=== PATIENT | female | born 1950 | race Caucasian/White ===

== ENCOUNTER 2023-11-01 11:56 | Day surgery (SDC) | payer OTHER, SELFPAY ==
[2023-11-01] VITALS (19 sets, daily range): BP systolic 131–175; BP diastolic 68–112; BMI 33.5
[2023-11-01 13:20] LABS: ACT-LR - POC 294 Seconds (116-155)
--- NOTE | 2023-11-01 13:59 | ITS.CL.CATH ---
Consumer Safety Inspector - Catheterization
Cardiac Catheterization
Procedure Report:
CARDIAC CATHETERIZATION REPORT
Date of Procedure: 11/01/2023
Referring: Gaurav Reese MD
Indication: Exertional angina
HEMODYNAMIC DATA
AO: 129/76
LV: 129/12
LEFT VENTRICULOGRAPHY: Normal left ventricular wall motion with EF 63%
CORONARY ANGIOGRAPHY
Dominance: Right
Left Main: Normal
LAD: Mildly calcified with an angiographically ambiguous mid LAD lesion spanning the takeoff of the second septal clinical engineer. In some views this appears to be 70% while in other views it appears to be about 50% in severity. The remainder of the
LAD proper is free of disease. The large first diagonal branch which previously was said to have a 50% stenosis has no identifiable lesion on the study today.
Circumflex: Normal
RCA: Trivial luminal irregularities
FloWire assessment: At the conclusion the diagnostic study we proceeded with FloWire assessment of the angiographically ambiguous mid LAD stenosis. Heparin was used for anticoagulation. A 5 [place] EBU 3.5 guide catheter was used. A CapLinked wire
was passed into the distal LAD. iFR measurements were 0.87, 0.87, and 0.86. These are all consistent with flow-limiting disease. Accordingly, the decision was made to proceed with stenting of the mid LAD.
Angioplasty: We made an attempt to pass a 3.5 x 18 Poli RACHEL through the lesion but this would not cross. The undeployed stent was carefully removed and the vessel predilated with a 2.5 x 12 NC trek to 8 loreto. We then easily passed the 3.5 x 18 [place]
RACHEL to the target location where was deployed at 14 loreto then postdilated with a 3.5 NC Euphora to 17 [place]to. The final angiographic result was outstanding. There were no procedural complications.
Closure Device: None-the procedure was performed via the right radial artery
Radiation (mGy): 501
DAP (cm2.Gy): 36.1
Fluoroscopy time: 10.0 minutes
CONCLUSIONS
1: Normal left ventricular function with EF 63%
2: Single-vessel CAD as described-the LAD disease is flow-limiting
3. Successful stenting of mid LAD disease using 3.5 x 18 Poli RACHEL with outstanding result
4. Recommend uninterrupted dual antiplatelet therapy for 12 months and continued risk factor modification efforts
Copy to: Gaurav Reese MD, Saad Garcia MD
Boone Oliva MD, [facility], [facility]
[2023-11-01 14:40] LABS: ACT-LR - POC > 397 Seconds (116-155)
[2023-11-01] MEDS: NSS 1000 IV (15:51)
[2023-11-02 03:58] VITALS: BP 146/73
[2023-11-02 04:22] LABS: Hematocrit 35.1 % (37.0-47.0); Mean Corp Hgb Conc. 34.2 g/dL (33.0-37.0); Mean Corpuscular Hgb 30.1 pg (27.0-31.0); Mean Platelet Volume 10.8 fL (7.4-10.4); Platelet Count 193 10^3/uL (130-400); Red Blood Cell Count 3.99 10^6/uL (4.20-5.40); Red Cell Dist. Width 12.6 % (11.5-14.5); White Blood Cell Count 5.1 10^3/uL (4.8-10.8)
[2023-11-02 04:36] LABS: Blood Urea Nitrogen 12 mg/dl (7-17); Calcium 9.1 mg/dl (8.4-10.2); Carbon Dioxide 23 mmol/L (22-30); Chloride 107 mmol/L (98-107); Estimated Creatinine Clearance 81 ml/min; Glucose 83 mg/dl (70-99); HDL Cholesterol 65 mg/dl; LDL Cholesterol, Calculated 42 mg/dl; Potassium 4.1 mmol/L (3.5-5.1); Sodium 139 mmol/L (135-145); Total Cholesterol 118 mg/dl (50-199); Triglyceride 55 mg/dl (10-149); Very Low Density Lipoprotein 11 mg/dl (0-30); eGFR > 60.00
--- NOTE | 2023-11-02 05:23 | DOWNTIME ---
There was a [employer] Downtime on 11/02/2023 from 0100 to 11/02/2023 at 0337. Downtime documentation of patient's care, including medication administrations, has been reconciled in the electronic record per guidelines. Refer to the
patient's paper chart under the miscellaneous tab to see printed paper medication records and downtime forms.
[2023-11-02] MEDS: SYNTHROID 100 MCG PO (06:34)
[2023-11-02 07:42] VITALS: BP 154/94
[2023-11-02 07:44] VITALS: BP 165/84
[2023-11-02 07:47] VITALS: BP 162/77
[2023-11-02 08:15] VITALS: BMI 33.6
[2023-11-02] MEDS: LOW STRENGTH ASPIRIN 81 MG PO (08:17)
[2023-11-02] MEDS: ZETIA 10 MG PO (08:17)
[2023-11-02] MEDS: PEPCID 40 MG PO (08:17)
[2023-11-02] MEDS: CRESTOR 10 MG PO (08:17)
[2023-11-02] MEDS: PLAVIX 75 MG PO (08:18)
[2023-11-02] MEDS: IMDUR (EXTENDED RELEASE) 30 MG PO (08:18)
--- NOTE | 2023-11-02 08:32 | W.PN.CARDCBS ---
Addendum entered and electronically signed by KRISTOFER Mcmahon 11/02/23 08:59:
Starting losartan 25mg/d after discussion with Dr. Espino & Dr. Reese
Will continue to keep BP log as instructed
Original Note:
Today's Communication / Plan
-
cardiac rehab
home today
Impression / Plan
-
PCP: David Garcia MD
CDY: Gaurav Reese MD
73 y/o, progressive SOB/RIZO for 4-5 weeks with subsequent abnormal NST w/apical defect, EF 75%.
LHC- 70% mid LAD stenosis, iFR +, s/p angioplasty/RACHEL
IMPRESSION/PLAN:
CAD, s/p LAD PCI
tele- NSR 60s
radial cath site stable
DAPT w/asa, plavix
continue isosorbide
cardiac rehab consult
followup w/Dr. Reese next week as scheduled
HTN- modestly elevated 140-160s
not on any antihypertensives- she tells me her baseline is 120s.
keep BP log for next week and to followup w/Dr. Reese for management
HLD- excellent lipid profile noted
continue rosuvastatin, zetia, fish oil
GERD/HH- continue famotidine
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
Subjective
Date of Service: November 02, 2023
Denies cp/palps/dyspnea
oob ambulating
cath site without pain
Objective
Labs:
11/02/23 04:09
11/02/23 04:09
Labs
Hgb 12.0 g/dL (12.0-16.0) 11/02/23 04:09
Hct 35.1 % (37.0-47.0) L 11/02/23 04:09
Plt Count 193 10^3/uL (130-400) 11/02/23 04:09
Sodium 139 mmol/L (135-145) 11/02/23 04:09
Potassium 4.1 mmol/L (3.5-5.1) 11/02/23 04:09
BUN 12 mg/dl (7-17) 11/02/23 04:09
Creatinine 0.5 mg/dL (0.6-1.0) L 11/02/23 04:09
Glucose 83 mg/dl (70-99) 11/02/23 04:09
Vital Signs and I&O:
Vital Signs
Temp Pulse Resp BP Pulse Ox
98.6 F 68 18 162/77 97
11/02/23 07:38 11/02/23 08:15 11/02/23 07:38 11/02/23 07:47 11/02/23 07:38
Vital Signs
Temp Pulse Resp BP Pulse Ox
98.6 F 68 18 162/77 97
11/02/23 07:38 11/02/23 08:15 11/02/23 07:38 11/02/23 07:47 11/02/23 07:38
Intake & Output
10/31/23 11/01/23 11/02/23 11/03/23
06:59 06:59 06:59 06:59
Intake Total 1551 / 1551
Balance 1551 / 1551
Physical Exam
Physical Exam
AAOx3, MAEE 5/5
RRR S1 S2 no murmurs
CTA bilat, non labored
soft abd, + bs
right radial cath site without ht/bleeding, non tender
bilat extremities w/palpable distal pulses, no edema
--- NOTE | 2023-11-02 08:37 | W.PN.CD ---
Today's Communication / Plan
-
start losartan
DAPT
discharge today
follow up with Dr Reese
Impression / Plan
-
73 year old who underwent t LAD stenting yesterday.
Cath site fine . BP mildly elevated
- Continue DAPT. Importance reviewed with patient
- BP mildly elevated. BP at home had been in 140s and has been elevated at . reviewed with Dr Reese who will follow terminal carman and based on our discussion will start Losartan and she will follow up with Dr Reese
- discharge later today
Physical Exam
Vital Signs/Labs
Vital Signs
Temp Pulse Resp BP Pulse Ox
98.6 F 68 18 162/77 97
11/02/23 07:38 11/02/23 08:15 11/02/23 07:38 11/02/23 07:47 11/02/23 07:38
11/01/23 11/02/23 11/03/23
06:59 06:59 06:59
Actual Weight 80.3 kg 80.5 kg
11/02/23 04:09
11/02/23 04:09
Triglycerides 55 mg/dl (10-149) 11/02/23 04:09
LDL Cholesterol, Calc 42 mg/dl 11/02/23 04:09
VLDL Cholesterol, Calc 11 mg/dl (0-30) 11/02/23 04:09
HDL Cholesterol 65 mg/dl 11/02/23 04:09
Physical Exam
Constitutional: No acute distress
Cardiovascular: Rhythm & rate is regular
Respiratory: Respiratory effort normal
GI: Soft
Data Reviewed
-
Date of Service: November 02, 2023
Medical Decision Making: Reviewed Test Results
X-Ray/CT/US/MRI/NUC/PET: Report Reviewed by me
Medical Tests (PFT, Pathology etc): Report Reviewed by me
Labs: Labs Reviewed by me
[2023-11-02] MEDS: COZAAR 25 MG PO (09:04)
--- NOTE | 2023-11-02 09:12 | W.DS.TRANS ---
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
-
Discharge Instructions:
Discharge Diagnosis/Procedures Angioplasty and stent to Left Anterior
Descending artery
Diet Low Cholesterol
Driving Restrictions No driving for 24 hours
Other Services Cardiac Rehab
Instructions:
Stand-Alone Forms: DC Instructions- Cath/EP Lab
Changes to Home Medications: Yes
Discharge Medications:
DC Medications w/original date entered in [facility]
aspirin 81 mg chewable tablet 81 mg PO DAILY 11/01/23
coenzyme Q10 200 mg capsule (Co Q-10) 200 mg PO DAILY 11/01/23
ezetimibe 10 mg tablet (Zetia) 10 mg PO DAILY 11/01/23
famotidine 40 mg tablet 40 mg PO DAILY 11/01/23
isosorbide mononitrate 30 mg tablet,extended release 24 hr 30 mg PO DAILY 11/01/23
levothyroxine 100 mcg tablet 100 mcg PO DAILY 11/01/23
omega 4-yhz-fru-fish oil 1,200 mg (144 mg-216 mg) capsule (Fish Oil) 1 cap PO DAILY 11/01/23
rosuvastatin 10 mg tablet 10 mg PO DAILY 11/01/23
zinc 50 mg capsule 50 mg PO DAILY 11/01/23
clopidogrel 75 mg tablet 75 mg PO DAILY #90 tabs 11/02/23
losartan 25 mg tablet 25 mg PO DAILY #90 tabs 11/02/23
nitroglycerin 0.4 mg sublingual tablet 0.4 mg sublingual [id number] PRN chest pain #25 tabs 11/02/23
Home Medication Changes
NEW: clopidogrel, losartan, nitroglycerin
Pending Results: No
--- NOTE | 2023-11-02 09:17 | PTCARENOTE ---
Assumed care of pt from night RN. Pt received awake and alert, Ox3. VSS, CM shows NSR 60's, POX 97% on RA. Right wrist site CDI, ANDREW, CMS WNL throughout limb. Pt denies any pain or discomfort. Cozaar 25 mg OD given this am due to elevated B/P's
throughout night. Will repeat B/P in 2 hours, D/C on hold for now.
--- NOTE | 2023-11-02 11:13 | CM ---
spoke to pt jyoti luis, she is prev indep, lives alone in a 2 story home with 2 steps to enter. she denies any dc planning needs or dme's. plan is for dc to home when medically stable.
--- NOTE | 2023-11-02 11:56 | PTCARENOTE ---
All D/C info reviewed with pt and friend, all questions answered. Pt D/C'd home with friend.
== END 2023-11-02 11:58 | disposition home or self-care (01) ==
LOC: CATH 11:56
PROVIDERS: Nurse Practitioner Adult Health; ATTENDING PHYSICIAN Internal Medicine Cardiovascular Disease; FAMILY PHYSICIAN Family Medicine
DX: I25.118 Atherosclerotic heart disease of native coronary artery with other forms of angina pectoris (principal); I10 Essential (primary) hypertension; E78.5 Hyperlipidemia, unspecified; E03.9 Hypothyroidism, unspecified; G51.0 Bell's palsy; K21.9 Gastro-esophageal reflux disease without esophagitis; K44.9 Diaphragmatic hernia without obstruction or gangrene; Z82.49 Family history of ischemic heart disease and other diseases of the circulatory system; K57.90 Diverticulosis of intestine, part unspecified, without perforation or abscess without bleeding; Z79.890 Hormone replacement therapy; Z79.82 Long term (current) use of aspirin; Z79.02 Long term (current) use of antithrombotics/antiplatelets; Z79.899 Other long term (current) drug therapy
CPT/HCPCS: 80048; 80061; 85027; 85347; 93005; 93458; 93571; C1725; C1769; C1874; C1894; C9600; Q9967